=== PATIENT | female | born 1975 | race Caucasian/White ===

== ENCOUNTER → 2017-09-11 10:00 | Outpatient (POV) | payer MEDICARE, SELFPAY ==
[2017-09-11 10:14] VITALS: BP 135/85; PULSE 86; RESP 20; O2SAT 99
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
== END ==
PROVIDERS: PCP Family Medicine; Visit Provider Clinical Nurse Specialist Family Health
DX: M51.36 Other intervertebral disc degeneration, lumbar region; M54.16 Radiculopathy, lumbar region
CPT/HCPCS: 99202